=== PATIENT | male | born 1960 ===

== ENCOUNTER 2022-08-22 20:16 | Inpatient (IN) | payer MEDICARE ==
[~2022-08-22] VITALS: Ht 182.9 cm; Wt 87.1 kg
[2022-08-22] MEDS ORDERED: AMLO10TA4 PO (20:37)
[2022-08-22] MEDS ORDERED: ATOR40TA PO (20:37)
--- NOTE | 2022-08-22 20:49 | NUR ---
Patient BIB EMT from [facility]. Per report from JENNIFER Velasquez, patient was admitted at their facility for CP and SI last 08/15/21. Patient was discharge and now sent to [facility] for medical clearance. Patient is on 5250 hold for SI. Patient is a/ox4
[2022-08-22 21:02] LABS: HEMATOCRIT 41.7 % (36.7-47.1); MEAN CORPUSCULAR HEMOGLOBIN 31.7 uug (23.8-33.4); PLATELET COUNT (AUTO) 177 K/uL (152-348)
[2022-08-22 21:19] LABS: ALANINE AMINOTRANSFERASE 30 U/L (16-63); ALKALINE PHOSPHATASE 77 U/L (50-136); ASPARTATE AMINOTRANSFERASE 10 U/L (15-37); BILIRUBIN,DIRECT 0.2 mg/dL (0.0-0.2); BILIRUBIN,TOTAL 0.7 mg/dL (0.2-1.0); CARBON DIOXIDE 25 mmol/L (21-32); CHLORIDE 103 mmol/L (98-107); CREATININE 0.9 mg/dL (0.6-1.3); GLUCOSE 134 mg/dL (74-106); TOTAL PROTEIN, SERUM 7.6 g/dL (6.4-8.2); UREA NITROGEN, BLOOD 16 mg/dL (7-18)
[2022-08-22 21:35] LABS: ACETAMINOPHEN < 2.0 ug/mL (10-30)
--- NOTE | 2022-08-22 22:34 | NUR ---
Report given to U nurse Memo.
[2022-08-22] MEDS ORDERED: MAGNESIUM HYDROXIDE 30 ML LIQUID UDC PO PRN (22:45)
[2022-08-22] MEDS ORDERED: ACETAMINOPHEN 325 MG TABLET PO PRN (22:45)
[2022-08-22] MEDS ORDERED: LORAZEPAM 1 MG TABLET PO PRN (22:45)
[2022-08-22] MEDS ORDERED: MAG HYDROX/AL HYDROX/SIMETH 30 ML LIQUID UDC PO PRN (22:45)
[2022-08-22] MEDS ORDERED: ZOLPIDEM 5 MG TABLET PO PRN (22:45)
[2022-08-22 22:51] LABS: *AMPHETAMINE, URINE NEGATIVE (NEGATIVE); *CANNABINOID, URINE NEGATIVE (NEGATIVE); *COCCAINE, URINE NEGATIVE (NEGATIVE); *PHENCYCLIDINE SCREEN,URINE NEGATIVE (NEGATIVE)
--- NOTE | 2022-08-22 22:56 | NUR ---
Pt. admitted to [facility] room 141A, under care of Dr. Elizabeth and Dr Matamoros. Belongings List completed.
[2022-08-22 23:12] LABS: *BILIRUBIN,URIN NEGATIVE (NEGATIVE); *BLOOD, URINE NEGATIVE (NEGATIVE); *CLARITY,URINE CLEAR (CLEAR); *COLOR,URINE YELLOW (YELLOW); *KETONES,URINE NEGATIVE (NEGATIVE); *UROBILINOGEN,URINE 0.2 E.U./dl (NORMAL); LEUKOCYTE ESTERASE ,URINE NEGATIVE (NEGATIVE); NITRITE, URINE NEGATIVE (NEGATIVE); UGLUCOSE NEGATIVE (NEGATIVE)
--- NOTE | 2022-08-23 01:00 | NUR ---
GPS: Admitted to unit earlier a 61 yr.old male on a 14 day hold for DTS to be under the care of /Dr. Courtney. Pt.is AOx4. Pleasant,cooperative,slightly anxious but denies SI.at this time. Contracts for safety while in the hosp. Body check done,personal belongings list completed. Unit rules explained. Safe environment initiated. Pt's rights handbook given. Needs attended. Will continue to monitor. Re-assured prn.
--- NOTE | 2022-08-23 05:51 | NUR ---
GPS: Remains asleep during rounds. Breathing easy and unlabored. Safe environment provided. Will continue to monitor.
[2022-08-23 07:30] VITALS: BP 120/68
[2022-08-23] MEDS: NICOTINE 21 MG/24HR PATCH TD SCH (08:49)
--- NOTE | 2022-08-23 08:55 | NUR ---
Dayana from [facility] confirmed that patient had 14 Day hold hearing on .
[2022-08-23] MEDS: ESCITALOPRAM OXALATE 10 MG TABLET PO SCH (09:55)
[2022-08-23] MEDS: THIAMINE HCL 100 MG TABLET PO SCH (09:55)
--- NOTE | 2022-08-23 12:23 | NUR ---
ANGIE Initial Discharge Note: Pt currently resides at home with his 3 sons located at [address] [place] [address] ([phone]). Pt is alert and oriented and states he would like to return home upon discharge. Pt is agreeable to outpt therapy upon discharge. ANGIE will continue to work with pt, his son, Jayden ([phone]) and MD to ensure a safe and proper discharge plan.
--- NOTE | 2022-08-23 12:34 | NUR ---
Firearms Report: [employer] completed and submitted a [employer] firearms report for 5150 a danger to self. A copy of report has been placed in patient chart.
--- NOTE | 2022-08-23 16:00 | NUR ---
Received patient sleeping in his room. Patient is A/O X 4 to person, place, situation. Patient is isolative, depressed, not engaged in group activities or interactions with peers, preoccupied, anxious at times, cooperative with nursing care, compliant with medications. Patient is encourage to verbalizes concerns. Patient denies SI in this shift. Fall and safety precautions implemented.
[2022-08-23 16:10] VITALS: BP 119/81
[2022-08-23 20:00] VITALS: BP 148/91
[2022-08-24 07:51] VITALS: BP 117/80
[2022-08-24] MEDS: ATORVASTATIN 40 MG TABLET PO SCH (08:46)
[2022-08-24] MEDS: THIAMINE HCL 100 MG TABLET PO SCH (08:46)
[2022-08-24] MEDS: ESCITALOPRAM OXALATE 10 MG TABLET PO SCH (08:46)
[2022-08-24] MEDS: AMLODIPINE 10 MG TABLET PO SCH (08:47)
[2022-08-24] MEDS: MULTIVITAMINS,THERAPEUTIC TABLET PO SCH (08:47)
[2022-08-24] MEDS: NICOTINE 21 MG/24HR PATCH TD SCH (08:47)
--- NOTE | 2022-08-24 14:58 | NUR ---
GPS: Nursing Notes: Destructive Behavior To Self: Patient is alert and responding to his name, depressed mood and blunted affect, cooperative with nursing care, isolative and withdrawn in his room, A/Ox4, stated "I know what I did..I tried to kill myself, but I changed my mind..I just want to sleep..I want to go home.." compliant with his medications, following staff directions, verbally thad for safety, denies SI, continue to monitor for safety, no s/s of withdrawal, continue with treatment plan.
[2022-08-24 16:51] VITALS: BP 125/75
[2022-08-24 20:00] VITALS: BP 118/74
--- NOTE | 2022-08-25 06:18 | NUR ---
GPS: Pt.slept 7 hrs.last night. Remains anxious,depressed,isolative and does not come out of his room at all. Encouraged to attend groups as scheduled during the day. Contracts for safety. Safe environment provided. No s/s of alcohol withdrawal noted. Re-assured prn. Will continue to monitor.
[2022-08-25 08:15] VITALS: BP 129/87
[2022-08-25] MEDS: AMLODIPINE 10 MG TABLET PO SCH (08:38)
[2022-08-25] MEDS: MULTIVITAMINS,THERAPEUTIC TABLET PO SCH (08:38)
[2022-08-25] MEDS: ESCITALOPRAM OXALATE 10 MG TABLET PO SCH (08:38)
[2022-08-25] MEDS: ATORVASTATIN 40 MG TABLET PO SCH (08:39)
[2022-08-25] MEDS: NICOTINE 21 MG/24HR PATCH TD SCH (08:39)
[2022-08-25] MEDS: THIAMINE HCL 100 MG TABLET PO SCH (08:39)
--- NOTE | 2022-08-25 11:32 | NUR ---
GPS: Nursing Notes: Destructive Behavior To Self: Patient is awake and responding to his name, depressed mood and anxious affect, isolative and withdrawn in his room, A/Ox4, refusing his breakfast this am, stated "I am understand why I am here...But no, I do not want to hurt myself..I do not have any withdrawals either..", encourage to participate in therapeutic groups, agreed to shower and shave, interactive with recreational therapist, low energy level, cooperative with nursing care, continue to monitor for safety, continue with treatment plan.
[2022-08-25 16:38] VITALS: BP 140/81
[2022-08-25 19:57] VITALS: BP 139/86
--- NOTE | 2022-08-25 20:30 | NUR ---
Received patient awake alert, stayed in his room, refused to interact with other patient, Patient proud of himself by participating in hygiene such shave and shower. Patient remain in his room calm and cooperative with care, denies SI at this time, cont to monitor.
--- NOTE | 2022-08-26 05:04 | NUR ---
Patient awake, slept for seven hours, patient calm and cooperative with care, Patient denies of SI, cont to monitor.
--- NOTE | 2022-08-26 07:02 | NUR ---
Patient refused lab works, stated "No more sticking on me"," they did lab at ER and that is enough". patient alert oriented, under the risk and benefit of refusing lab works.
[2022-08-26 08:14] VITALS: BP 109/79
[2022-08-26] MEDS: ATORVASTATIN 40 MG TABLET PO SCH (08:35)
[2022-08-26] MEDS: MULTIVITAMINS,THERAPEUTIC TABLET PO SCH (08:35)
[2022-08-26] MEDS: ESCITALOPRAM OXALATE 10 MG TABLET PO SCH (08:35)
[2022-08-26] MEDS: THIAMINE HCL 100 MG TABLET PO SCH (08:35)
[2022-08-26] MEDS: AMLODIPINE 10 MG TABLET PO SCH (08:36)
[2022-08-26] MEDS: NICOTINE 21 MG/24HR PATCH TD SCH (08:36)
--- NOTE | 2022-08-26 14:46 | NUR ---
GPS: Nursing Notes: Destructive Behavior To Self: Patient is awake and responding to his name, cooperative with nursing care, compliant with his medications, denies discomfort and withdrawals, depressed mood and blunted affect, isolative and withdrawn in his room, needs prompting to participate in therapeutic groups, A/Ox4, following staff directions, continue to monitor for safety, continue with treatment plan.
[2022-08-26 16:06] VITALS: BP 145/88
--- NOTE | 2022-08-26 19:35 | NUR ---
received patient up the tv room watching a movie, patient socialize with other patient, calm and cooperative with the care, ambulate in hallways, denies SI at this time, cont to monitor.
[2022-08-26 19:52] VITALS: BP 141/94
[2022-08-26 20:02] VITALS: BP 128/85
--- NOTE | 2022-08-27 06:48 | NUR ---
patient slept most of the night, patient calm and cooperative with care, patient denies SI at this time, cont to monitor.
[2022-08-27 08:00] VITALS: BP 145/97
[2022-08-27] MEDS: ESCITALOPRAM OXALATE 10 MG TABLET PO SCH (08:43)
[2022-08-27] MEDS: AMLODIPINE 10 MG TABLET PO SCH (08:43)
[2022-08-27] MEDS: NICOTINE 21 MG/24HR PATCH TD SCH (08:43)
[2022-08-27] MEDS: ATORVASTATIN 40 MG TABLET PO SCH (08:43)
[2022-08-27] MEDS: MULTIVITAMINS,THERAPEUTIC TABLET PO SCH (08:43)
[2022-08-27] MEDS: THIAMINE HCL 100 MG TABLET PO SCH (08:43)
--- NOTE | 2022-08-27 10:34 | NUR ---
Clinical SW Note: SW contacted [place] [employer] and the front desk admin of the day informed this SW that by law, they cannot go to the patients house to check for firearms.
--- NOTE | 2022-08-27 14:16 | NUR ---
GPS: Nursing Notes: Destructive Behavior To Self: Patient is awake and responding to his name, cooperative with nursing care, compliant with his medications, ambulatory, self care, depressed mood and appropriate affect, denies SI, stated "I am feeling better..", exercising in the hallway by walking, participating in therapeutic groups, A/Ox4, stated "I do understand the reasons why I am here, but I do not what to hurt myself.." Denies any discomfort or withdrawals, isolative in his room at times, continue to monitor for safety, continue with treatment plan.
[2022-08-27 16:00] VITALS: BP 138/89
[2022-08-27 19:56] VITALS: BP 133/87
[2022-08-28 07:42] VITALS: BP 123/89
[2022-08-28] MEDS: MULTIVITAMINS,THERAPEUTIC TABLET PO SCH (09:14)
[2022-08-28] MEDS: NICOTINE 21 MG/24HR PATCH TD SCH (09:14)
[2022-08-28] MEDS: ESCITALOPRAM OXALATE 10 MG TABLET PO SCH (09:15)
[2022-08-28] MEDS: ATORVASTATIN 40 MG TABLET PO SCH (09:15)
[2022-08-28] MEDS: AMLODIPINE 10 MG TABLET PO SCH (09:15)
[2022-08-28] MEDS: THIAMINE HCL 100 MG TABLET PO SCH (09:15)
[2022-08-28 15:11] VITALS: BP 131/85
--- NOTE | 2022-08-28 15:21 | NUR ---
Pt is awake in dinning room watching television , responding to his name. Pt is calm and pleasant on approach. Pt is compliant with medications and with care. Pt is attending group activities and participating. Pt denies SI and verbally contracted for safety. Reassurance and emotional support provided. Safety measures in place . Continue to monitor for safety.
[2022-08-28 20:00] VITALS: BP 135/89
--- NOTE | 2022-08-28 20:00 | NUR ---
Received patient up in the TV room, watch TV, ambulate to hallways, calm and cooperative with care, sleep good at night, cont to monitor.
--- NOTE | 2022-08-29 06:24 | NUR ---
Patient slept most of the night, no complain of pain, calm and cooperative with care, cont to monitor.
[2022-08-29 09:13] VITALS: BP 155/72
[2022-08-29] MEDS: THIAMINE HCL 100 MG TABLET PO SCH (09:29)
[2022-08-29] MEDS: ATORVASTATIN 40 MG TABLET PO SCH (09:29)
[2022-08-29] MEDS: MULTIVITAMINS,THERAPEUTIC TABLET PO SCH (09:29)
[2022-08-29] MEDS: NICOTINE 21 MG/24HR PATCH TD SCH (09:29)
[2022-08-29 09:31] VITALS: BP 155/72
[2022-08-29] MEDS: ESCITALOPRAM OXALATE 10 MG TABLET PO SCH (09:31)
[2022-08-29] MEDS: AMLODIPINE 10 MG TABLET PO SCH (09:31)
--- NOTE | 2022-08-29 10:30 | NUR ---
Nursing- Stayed in the activity room during his breakfast , compliant with his routine medications, well informed of his discharge plan scheduled this pm. Looking forward to going home per patient .
--- NOTE | 2022-08-29 11:28 | NUR ---
ANGIE Discharge Note: Pt will be discharged home located at [address] [place] [address] ([phone]) via taxi transportation at 2PM. ANGIE spoke with pts ID case management social worker, Sunday [phone] who is aware that pt is discharging home. Pt is aware and agreeable with discharge plan. Pt is alert and oriented 4x and is able to plan for his self-care at this time. Pt denies any suicidal or homicidal ideation. Pt will follow-up at the facility at [facility] located at [address] [place] [address] ([phone]) with a psychiatrist that will be assigned on the day of his consultation. 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 Pt presents with calm mood and congruent affect. PHARMACY: [facility] [address] [place] [phone] ([phone]).
--- NOTE | 2022-08-29 14:05 | NUR ---
Nursing- Reviewed discharged instructions, diet, safety, skin care, follow up with Psychiatrist, as well as Primary medical Doctor. all belongings from the main safe given back to patient ( 1 black iphone, $509.00, house sotelo ) Patient vervalized understanding of the discharge instructions. Patient in good spirit, denies any discomfort per patient , "its a wake up call for him" per patient. Discharged to home via taxi ( voucher)
== END 2022-08-29 14:05 | disposition home or self-care (01) | DRG 885 ==
LOC: ER 20:19 → GPS 22:38
PROVIDERS: ADMIT Psychiatry & Neurology Psychiatry; ATTEND Nurse Practitioner Family
DX: F32.2 Major depressive disorder, single episode, severe without psychotic features (principal); R45.851 Suicidal ideations; F10.239 Alcohol dependence with withdrawal, unspecified; F17.210 Nicotine dependence, cigarettes, uncomplicated; E78.5 Hyperlipidemia, unspecified; I10 Essential (primary) hypertension; Z79.899 Other long term (current) drug therapy; Z20.822 Contact with and (suspected) exposure to COVID-19
CPT/HCPCS: 36415; 85025; G0480